=== PATIENT | female | born 1955 | race Caucasian/White ===

== ENCOUNTER 2021-11-19 11:09 | Inpatient (IN) | payer MEDICARE, OTHER ==
[~2021-11-19] VITALS: Ht 165.1 cm; Wt 128.4 kg
[2021-11-19 12:19] LABS: HEMOGLOBIN 14.8 gm/dl (12.3-15.3); RED BLOOD COUNT 4.98 M/UL (4.00-5.10); WHITE BLOOD COUNT 16.2 K/UL (4.5-11.0)
[2021-11-19 12:53] LABS: BUN/CREATININE RATIO 36 (0-10)
[2021-11-19 16:30] LABS: BUN/CREATININE RATIO 38 (0-10)
[2021-11-19] MEDS ORDERED: NAMENDA10 MG PO (17:52)
[2021-11-19] MEDS ORDERED: GABAPENTIN300 MG PO (17:52)
[2021-11-19] MEDS ORDERED: ELIQUIS5 MG PO (17:53)
[2021-11-19 19:14] LABS: BUN/CREATININE RATIO 32 (0-10)
[2021-11-19] MEDS ORDERED: DULOXETINE HCL60 MG PO (20:22)
[2021-11-19] MEDS ORDERED: ZANAFLEX 4 MG TA4 MG PO (20:22)
[2021-11-19] MEDS ORDERED: TENORMIN25 MG PO (20:23)
[2021-11-19] MEDS ORDERED: NEURONTIN300 MG PO (20:23)
[2021-11-19] MEDS ORDERED: MOEXIPRIL HCL15 MG PO (20:23)
[2021-11-19] MEDS ORDERED: PREVACID30 MG PO (20:23)
[2021-11-19] MEDS ORDERED: CRESTOR5 MG PO (20:23)
[2021-11-19] MEDS ORDERED: METFORMIN HCL500 MG PO (20:24)
[2021-11-19 23:35] LABS: BUN/CREATININE RATIO 29 (0-10)
[2021-11-20 04:33] LABS: BUN/CREATININE RATIO 23 (0-10)
--- NOTE | 2021-11-20 10:34 | NUR ---
PATIENT IS GIVEN DISCHARGE PACKET WITH EDUCATION INCLUDE IN THE PACKET. I HAVE EDUCATED THE PATIENT ON DIABETES MANAGEMENT THROUGH DIET AND MEDICATION AT HOME. PATIENT IS RESPONSIVE TO EDUCATION AND VERBALLY EXPRESSES UNDERSTANDING. PATIENTS HUSBANDS IS PICKING HER UP FOR TRANSPORTATION HOME. VITALS ARE STABLE BEFORE DISCHARGE AND IV HAS BEEN REMOVED.
== END 2021-11-20 10:53 | disposition home or self-care (01) | DRG 638 ==
LOC: ER1 11:09 → CDU 13:59 → CCU 15:35
PROVIDERS: Nurse Practitioner; Physician Assistant Medical; ADMIT Internal Medicine
DX: E11.00 Type 2 diabetes mellitus with hyperosmolarity without nonketotic hyperglycemic-hyperosmolar coma (NKHHC) (principal); Z68.42 Body mass index [BMI] 45.0-49.9, adult; M32.9 Systemic lupus erythematosus, unspecified; I10 Essential (primary) hypertension; Z20.822 Contact with and (suspected) exposure to COVID-19; E78.5 Hyperlipidemia, unspecified; E66.9 Obesity, unspecified; E11.65 Type 2 diabetes mellitus with hyperglycemia; Z79.4 Long term (current) use of insulin; Z90.49 Acquired absence of other specified parts of digestive tract; Z98.2 Presence of cerebrospinal fluid drainage device; Z82.49 Family history of ischemic heart disease and other diseases of the circulatory system
CPT/HCPCS: 0240U; 36415; 71045; 80048; 80053; 80307; 81001; 82009; 82550; 82553; 82803; 82962; 83036; 83735; 84484; 85025; 87086; 93005; 96374; 96376; 99285; J1650; J7030

== ENCOUNTER 2021-12-24 17:53 | Emergency (ER) | payer MEDICARE, OTHER ==
[~2021-12-24 17:53] MED LIST: CRESTOR5 MG PO; DULOXETINE HCL60 MG PO; ELIQUIS5 MG PO; GABAPENTIN300 MG PO; METFORMIN HCL500 MG PO; MOEXIPRIL HCL15 MG PO; NAMENDA10 MG PO; NEURONTIN300 MG PO; PREVACID30 MG PO; TENORMIN25 MG PO; ZANAFLEX 4 MG TA4 MG PO
[2021-12-24 19:18] LABS: HEMOGLOBIN 13.8 gm/dl (12.3-15.3); RED BLOOD COUNT 4.55 M/UL (4.00-5.10); WHITE BLOOD COUNT 13.8 K/UL (4.5-11.0)
[2021-12-24 19:52] LABS: BUN/CREATININE RATIO 35 (0-10)
[2021-12-24] MEDS ORDERED: NOVOLOG FL100 UNIT/1 INJ (22:11)
== END 2021-12-24 22:19 | disposition home or self-care (01) ==
LOC: ER1 17:53
PROVIDERS: Physician Assistant
DX: E11.65 Type 2 diabetes mellitus with hyperglycemia (principal); I11.9 Hypertensive heart disease without heart failure; E78.5 Hyperlipidemia, unspecified; Z79.4 Long term (current) use of insulin; Z91.040 Latex allergy status
CPT/HCPCS: 80053; 81001; 82009; 82800; 82962; 85025; 87086; 99284

== ENCOUNTER 2022-01-19 19:53 | Emergency (ER) | payer MEDICARE, OTHER ==
[~2022-01-19 19:53] MED LIST changes: +NOVOLOG FL100 UNIT/1 INJ
[2022-01-19 21:22] LABS: HEMOGLOBIN 13.9 gm/dl (12.3-15.3); RED BLOOD COUNT 4.62 M/UL (4.00-5.10); WHITE BLOOD COUNT 9.1 K/UL (4.5-11.0)
[2022-01-19] MEDS ORDERED: OMNICEF 300 MG300 MG PO (23:44)
== END 2022-01-19 23:50 | disposition home or self-care (01) ==
LOC: ER1 19:53
PROVIDERS: Student in an Organized Health Care Education/Training Program
DX: J40 Bronchitis, not specified as acute or chronic (principal); E11.9 Type 2 diabetes mellitus without complications; I10 Essential (primary) hypertension; Z86.718 Personal history of other venous thrombosis and embolism; Z86.711 Personal history of pulmonary embolism; Z91.040 Latex allergy status; Z20.822 Contact with and (suspected) exposure to COVID-19
CPT/HCPCS: 0240U; 71045; 80053; 85025; 93005; 99284